=== PATIENT | female | born 1985 | race Caucasian/White ===

== ENCOUNTER 2017-08-05 11:20 | Emergency (ER) | payer SELFPAY ==
[2017-08-05] MEDS ORDERED: Ondansetron ODT 4 MG TAB ONE (16:26)
[2017-08-05] MEDS ORDERED: Acetaminophen 500 MG TAB ONE (16:26)
== END 2017-08-05 17:02 | disposition home or self-care (01) ==
LOC: ERS 11:20
DX: M54.5 Low back pain (principal); G89.29 Other chronic pain; F60.4 Histrionic personality disorder; B20 Human immunodeficiency virus [HIV] disease; G43.909 Migraine, unspecified, not intractable, without status migrainosus; F32.9 Major depressive disorder, single episode, unspecified; F41.9 Anxiety disorder, unspecified; F17.210 Nicotine dependence, cigarettes, uncomplicated
CPT/HCPCS: 99283; Q0162

== ENCOUNTER 2017-08-05 13:37 | Emergency (ER) | payer SELFPAY ==
[2017-08-05 16:37] LABS: Hematocrit 36.4 % (36.0-47.0); Mean Platelet Volume 6.5 fL (7.4-10.4); Red Blood Cell (RBC) Count 3.79 mill/uL (4.20-5.40); White Blood Cell (WBC) Count 4.9 thou/uL (4.8-10.8)
[2017-08-05 16:51] LABS: Band 1 % (5-11); Neutrophil 32 % (42-75); Reactive Lymphocytes 4 % (0-10)
[2017-08-05 16:58] LABS: ALT (SGPT) 23 U/L (8-55); AST (SGOT) 53 U/L (5-34); Alkaline Phosphatase 63 U/L (40-150); Anion Gap 11 mmol/L (10-20); BUN (Urea Nitrogen) 19 mg/dL (7.0-18.7); Bilirubin, Total 0.2 mg/dL (0.2-1.2); Calc. Creatinine Clearance 0 mL/min (70-130); Calcium 9.1 mg/dL (7.8-10.44); Carbon Dioxide 30 mmol/L (22-29); Chloride 104 mmol/L (98-107); Estimated GFR-MDRD 58; Globulin 3.3 g/dL (2.4-3.5); Protein, Total 7.2 g/dL (6.0-8.3)
[2017-08-05 18:39] LABS: Bilirubin Small (Negative); Blood, Urine Large (Negative); Glucose, Urine (Dipstick) Negative (Negative); Ketone, Urine Negative (Negative); Nitrite Negative (Negative); Protein, Urine (Dipstick) 100 mg/dL (Neg-Trace)
[2017-08-05 18:48] LABS: Bacteria/HPF Rare-Few HPF (None Seen); Hyaline Casts/LPF 0-3 HYALINE CAST LPF (0-3 Hyaline)
[2017-08-05] MEDS ORDERED: Ketorolac Tromethamine 30 MG/ML VIAL ONE (19:27)
== END 2017-08-05 19:40 | disposition home or self-care (01) ==
LOC: ERS 13:37
DX: E86.0 Dehydration (principal); B34.9 Viral infection, unspecified; B20 Human immunodeficiency virus [HIV] disease; G43.909 Migraine, unspecified, not intractable, without status migrainosus; F17.210 Nicotine dependence, cigarettes, uncomplicated; F31.9 Bipolar disorder, unspecified
CPT/HCPCS: 36415; 80053; 81003; 81015; 85025; 85652; 86140; 96372; J1885

== ENCOUNTER 2017-08-17 15:04 | Emergency (ER) | payer SELFPAY ==
[2017-08-17] MEDS ORDERED: Lorazepam 1 MG TAB ONE (16:17)
[2017-08-17] MEDS ORDERED: Ibuprofen 200 MG TAB ONE (16:17)
== END 2017-08-17 17:13 | disposition home or self-care (01) ==
LOC: ERS 15:04
DX: S00.83XA Contusion of other part of head, initial encounter (principal); F41.9 Anxiety disorder, unspecified; J18.9 Pneumonia, unspecified organism; B20 Human immunodeficiency virus [HIV] disease; F17.210 Nicotine dependence, cigarettes, uncomplicated; Z79.899 Other long term (current) drug therapy
CPT/HCPCS: 99284

== ENCOUNTER 2017-09-03 14:37 | Emergency (ER) | payer SELFPAY ==
[2017-09-03 17:12] LABS: #Eosinphils 0.1 thou/uL (0.0-0.7); #Lymphocytes 0.8 thou/uL (1.20-3.40); #Monocytes 0.4 thou/uL (0.11-0.59); #Neutrophils 4.6 thou/uL (1.40-6.50); %Basophils 0.5 % (0.0-1.0); %Eosinophils 2.3 % (0.0-10.0); %Lymphocytes 12.9 % (21.0-51.0); %Monocytes 6.1 % (0.0-10.0); Hematocrit 35.6 % (36.0-47.0); Mean Platelet Volume 6.9 fL (7.4-10.4); Red Blood Cell (RBC) Count 3.69 mill/uL (4.20-5.40); White Blood Cell (WBC) Count 5.9 thou/uL (4.8-10.8)
[2017-09-03 17:36] LABS: ALT (SGPT) 23 U/L (8-55); AST (SGOT) 32 U/L (5-34); Alkaline Phosphatase 78 U/L (40-150); Anion Gap 13 mmol/L (10-20); BUN (Urea Nitrogen) 8 mg/dL (7.0-18.7); Bilirubin, Total 0.3 mg/dL (0.2-1.2); Calc. Creatinine Clearance 0 mL/min (70-130); Calcium 9.7 mg/dL (7.8-10.44); Carbon Dioxide 25 mmol/L (22-29); Chloride 107 mmol/L (98-107); Estimated GFR-MDRD 87; Globulin 3.6 g/dL (2.4-3.5); Protein, Total 7.7 g/dL (6.0-8.3)
[2017-09-03 19:03] LABS: CK (CPK) 289 U/L (29-168); Lipase 8 U/L (8-78)
[2017-09-03 19:09] LABS: Troponin I Less than 0.010 ng/mL (< 0.028)
[2017-09-03 19:20] LABS: Lactic Acid - Sepsis 1.2 mmol/L (0.5-2.2)
--- NOTE | 2017-09-03 19:31 | RAD ---
FRONTAL VIEW CHEST: 09/03/17 COMPARISON: 11/14/16 INDICATION: Dyspnea. FINDINGS: There is shallow depth of inspiration accentuating the lung base markings. Cardiomediastinal silhoue tte is accentuated by portable technique and shallow depth of inspiration. IMPRESSION: Hypoinflated lungs with crowded lung base markings bilaterally. POS: [facility]
[2017-09-03 19:32] LABS: Acetaminophen Less than 6.0 mcg/mL (10.0-30.0); Salicylate Less than 8.0 mg/dL (15.0-30.0)
[2017-09-03 19:52] LABS: Bilirubin Negative (Negative); Blood, Urine Negative (Negative); Glucose, Urine (Dipstick) Negative (Negative); Ketone, Urine Negative (Negative); Nitrite Negative (Negative); Protein, Urine (Dipstick) Negative (Neg-Trace); Urobilinogen 0.2 mg/dL (0.2-1.0)
[2017-09-03 19:54] LABS: Bacteria/HPF None Seen HPF (None Seen); Hyaline Casts/LPF 0-3 HYALINE CAST LPF (0-3 Hyaline); RBC/HPF 0-3 HPF (0-3); Squamous Epithelial 0-3 HPF (0-3); WBC/HPF 0-3 HPF (0-3)
[2017-09-03 20:02] LABS: Amphetamine Detected (NotDetected); Methadone Not Detected (NotDetected); Methamphetamine Not Detected (NotDetected)
--- NOTE | 2017-09-03 21:40 | ULT ---
ULTRASOUND WITH DOPPLER DUPLEX VENOUS LOWER EXTREMITY BILATERAL CPT: 37487 ICD-10-PCS: B54D HISTORY: Pain. TECHNIQUE: Color flow Doppler, spectral waveform analysis of pulsed Doppler, and fischer-scale imaging with compre ssion and augmentation, were used to evaluate the bilateral common femoral, femoral, popliteal, post erior tibial, and superficial femoral, veins; and the proximal portions of the profunda femoral and greater saphenous, veins. FINDINGS: Appropriate compressibility and flow within the imaged deep vein system of each lower extremity. IMPRESSION: No DVT. POS: [facility]
--- NOTE | 2017-10-24 15:00 | EKG ---
Test Reason : Blood Pressure : / mmHG Vent. Rate : 084 BPM Atrial Rate : 084 BPM P-R Int : 156 ms QRS Dur : 108 ms QT Int : 392 ms P-R-T Axes : 047 053 037 degrees QTc Int : 463 ms Normal sinus rhythm Incomplete right bundle branch block Prolonged QT Abnormal ECG Confirmed by SEE GARCIA, SHANNAN Méndez ([id number]), field map editor ANG CUTLER ([id number]) on 10/24/2017 2:59:43 PM Referred By: Confirmed By:SHANNAN CUI MD
== END 2017-09-03 21:48 | disposition home or self-care (01) ==
LOC: ERS 14:37
DX: R60.0 Localized edema (principal); F19.10 Other psychoactive substance abuse, uncomplicated; B20 Human immunodeficiency virus [HIV] disease; G43.909 Migraine, unspecified, not intractable, without status migrainosus; F17.210 Nicotine dependence, cigarettes, uncomplicated
CPT/HCPCS: 36415; 51701; 71010; 80053; 80306; 80307; 81003; 81015; 81025; 82553; 83605; 83690; 83880; 84484; 85025; 93005; 93970; 96360; A4353

== ENCOUNTER 2018-01-13 22:38 | Emergency (ER) | payer SELFPAY ==
[2018-01-13 23:44] LABS: Hemoglobin 13.3 g/dL (12.0-16.0); Mean Corpuscular HGB CONC 34.4 g/dL (32.0-36.0); Mean Corpuscular Hemoglobin 30.8 pg (27.0-31.0); Mean Corpuscular Volume 89.4 fl (81.0-99.0); Mean Platelet Volume 7.7 fL (7.4-10.4); Platelet Count 208 thou/uL (130-400); RBC Distribution Width 13.9 % (11.5-14.5); Red Blood Cell (RBC) Count 4.31 mill/uL (4.20-5.40); White Blood Cell (WBC) Count 3.2 thou/uL (4.8-10.8)
[2018-01-13 23:50] LABS: BHCG - Serum Negative (NEGATIVE); Pregs Control Background? CLEAR/WHITE (CLR/WHITE); Pregs Control Bar Appear? YES (CONTROL BAR)
[2018-01-13 23:54] LABS: Acetaminophen Less than 6.0 mcg/mL (10.0-30.0); Alcohol Less than 10 mg/dL (Less than 10); Salicylate Less than 8.0 mg/dL (15.0-30.0)
[2018-01-13 23:55] LABS: ALT (SGPT) 14 U/L (8-55); AST (SGOT) 25 U/L (5-34); Albumin 4.3 g/dL (3.5-5.0); Alkaline Phosphatase 83 U/L (40-150); Anion Gap 17 mmol/L (10-20); BUN (Urea Nitrogen) 20 mg/dL (7.0-18.7); Bilirubin, Total 0.7 mg/dL (0.2-1.2); CK (CPK) 290 U/L (29-168); Calc. Creatinine Clearance 0 mL/min (70-130); Calcium 9.5 mg/dL (7.8-10.44); Carbon Dioxide 19 mmol/L (22-29); Chloride 103 mmol/L (98-107); Estimated GFR-MDRD 75; Globulin 3.7 g/dL (2.4-3.5); Glucose 65 mg/dL (70-105); Potassium 3.5 mmol/L (3.5-5.1); Sodium 135 mmol/L (136-145)
[2018-01-13 23:58] LABS: CKMB 2.6 ng/mL (0-6.6); Troponin I Less than 0.010 ng/mL (< 0.028)
[2018-01-14 00:10] LABS: Band 2 % (5-11); Lymphocytes 30 % (21-51); MDiff Complete? YES; Monocytes 20 % (0-10); Neutrophil 48 % (42-75)
[2018-01-14] MEDS ORDERED: Acetaminophen 500 MG TAB ONE (00:53)
[2018-01-14] MEDS ORDERED: Lorazepam 2 MG/ML VIAL ONE (00:57)
[2018-01-14] MEDS ORDERED: HYDROcodone/Acetaminophen 5/325 mg Tablet ONE (01:39)
--- NOTE | 2018-01-14 07:48 | CT ---
PRELIMINARY REPORT/[facility]/EMERGENCY AFTER HOURS PROCEDURE: EXAM: CT Head Without Intravenous Contrast CLINICAL HISTORY: 32 years old, female; Injury or trauma; Fall; Initial encounter; Abrasion; Not specified; Patient HX: Reports she had grand mal seizure today at work following "disagreement" with someone, approx. [id number]. Reports she fell during episode and hit r side of head and r side of back. She went home after episo de TECHNIQUE: Axial computed tomography images of the head/brain without intravenous contrast. COMPARISON: No relevant prior studies available. FINDINGS: Brain: Somewhat limited evaluation at the level of the skull base due to streak artifacts. Otherwise no evidence of hemorrhage, mass effect or edema. Ventricles: No ventriculomegaly. Bones/joints: No acute fracture. Soft tissues: No acute findings. Sinuses: No significant air fluid levels. Mastoid air cells: No significant fluid. IMPRESSION: No acute findings. Thank you for allowing us to participate in the care of your patient. Dictated and Authenticated by: Osvaldo Ross MD 01/14/2018 1:21 AM Central Time ([place] & [place]) FINAL INTERPRETATION HEAD CT WITHOUT CONTRAST: 01/14/2018 HISTORY: Fall. Head trauma. COMPARISON: 03/05/2016 FINDINGS: I agree with the preliminary [facility] report dictated by Dr. Ross. The imaged paranasal sinuses/mastoid air cells are well aerated. No displaced calvarial fracture not ed. No intracranial hemorrhage, midline shift, mass effect, or ventricular enlargement. IMPRESSION: No acute findings. POS: [facility]
--- NOTE | 2018-01-14 08:00 | RAD ---
FRONTAL AND LATERAL IMAGING THORACIC SPINE: Date: 01-14-18 Comparison: 12-22-13 History: Fall, pain. FINDINGS: Pedicles appear intact on frontal imaging. Lateral imaging demonstrates normal vertebral body height and alignment. At C5-6 and C6-7 there is mild disc space narrowing and degenerative endplate change. There is minimal levoscoliosis of the lower thoracic spine, stable. IMPRESSION: No acute findings. POS: [facility]
--- NOTE | 2018-01-14 08:06 | RAD ---
FRONTAL VIEW CHEST: INDICATIONS: Chest pain. Fall. COMPARISON: 09/03/2017 FINDINGS: No consolidation, effusion, or discrete pneumothorax. The cardiac silhouette is normal in size. IMPRESSION: No focal consolidation. POS: [facility]
--- NOTE | 2018-02-01 00:25 | EKG ---
Test Reason : Blood Pressure : / mmHG Vent. Rate : 091 BPM Atrial Rate : 091 BPM P-R Int : 132 ms QRS Dur : 086 ms QT Int : 362 ms P-R-T Axes : 065 072 052 degrees QTc Int : 445 ms Normal sinus rhythm Normal ECG Confirmed by EMILY HARLEY ([id number]), development editor ANG CUTLER ([id number]) on 02/01/2018 12:24:29 AM Referred By: Confirmed By:EMILY HARLEY
== END 2018-01-14 01:41 | disposition home or self-care (01) ==
LOC: ERS 22:38
DX: G40.909 Epilepsy, unspecified, not intractable, without status epilepticus (principal); F41.9 Anxiety disorder, unspecified; F43.10 Post-traumatic stress disorder, unspecified; F17.210 Nicotine dependence, cigarettes, uncomplicated; E11.22 Type 2 diabetes mellitus with diabetic chronic kidney disease; G43.909 Migraine, unspecified, not intractable, without status migrainosus; B20 Human immunodeficiency virus [HIV] disease; I50.9 Heart failure, unspecified; Z87.01 Personal history of pneumonia (recurrent); Z79.899 Other long term (current) drug therapy; W19.XXXA Unspecified fall, initial encounter
CPT/HCPCS: 36415; 70450; 71045; 72072; 80053; 80307; 82553; 84484; 84703; 85025; 93005; 96372; 99406; J2060